=== PATIENT | male | born 1990 | race Caucasian/White ===

== ENCOUNTER 2022-03-06 21:27 | Emergency (ER) | payer SELFPAY ==
[~2022-03-06] VITALS: Ht 167.6 cm; Wt 82.0 kg
[2022-03-06] MEDS ORDERED: ACETAMINOPHEN 325MG TABLET PO ONE (22:00)
[2022-03-06] MEDS ORDERED: IBUPROFEN 400MG TABLET PO ONE (22:00)
[2022-03-07] MEDS ORDERED: IBUP-2028 MT (00:30)
[2022-03-07] MEDS ORDERED: METH-653 MT (00:30)
[2022-03-07] MEDS ORDERED: LIDO1ADH23 TP (00:30)
[2022-03-07] MEDS ORDERED: TOPUD PO (00:30)
[2022-03-07 00:50] VITALS: BP 122/78
== END 2022-03-07 00:50 | disposition home or self-care (01) ==
LOC: ER 21:27
DX: S00.81XA Abrasion of other part of head, initial encounter (principal); S93.492A Sprain of other ligament of left ankle, initial encounter; V47.5XXA Car driver injured in collision with fixed or stationary object in traffic accident, initial encounter; Y93.89 Activity, other specified; Y92.488 Other paved roadways as the place of occurrence of the external cause
CPT/HCPCS: 70450; 73610; 99284; Z7610